=== PATIENT | female | born 1940 | race Caucasian/White ===

== ENCOUNTER 2018-01-27 18:53 | Inpatient (IN) | payer OTHER ==
[~2018-01-27] VITALS: Ht 152.4 cm; Wt 64.0 kg
[~2018-01-27 18:53] MED LIST: GEM600T GT; GLIP-116 PO; INSUINJ37 SC; INSUINJ47 IJ; LISI-646 PO; MET25T PO; OMEP20CA74 PO
[2018-01-27 20:05] LABS: Basophils # (auto) 0 uL; Basophils % (auto) 0.4 % (0.0-2.0); Eosinophils # (auto) 0.1 uL; Eosinophils % (auto) 1.1 % (0.0-7.0); Hematocrit 35.4 % (36.0-46.0); Hemoglobin 12.3 g/dL (12.2-16.2); Lymphocytes # (auto) 2.4 uL; Lymphocytes % (auto) 29.3 % (10.0-50.0); Mean Corpuscular Hgb Conc. 34.6 g/dL (32.0-36.0); Mean Corpuscular Volume 86.5 fL (80.0-100.0); Monocytes # (auto) 0.6 uL; Monocytes % (auto) 7.3 % (0.0-12.0); Neutrophils % (auto) 61.9 % (37.0-80.0); Platelet Count (auto) 226 10^3/uL (140-450); Red Blood Cells 4.09 10^6/uL (4.0-5.20); White Blood Cell 8.1 10^3/uL (4.4-10.8)
[2018-01-27 20:14] LABS: Albumin 3.3 g/dL (3.4-5.0); Anion Gap 5 (5-15); Blood Urea Nitrogen 37 mg/dL (7-18); Calcium 9.8 mg/dL (8.5-10.1); Carbon Dioxide 24 mmol/L (21-32); Chloride 111 mmol/L (98-107); Glucose 135 mg/dL (74-106); Potassium 4.5 mmol/L (3.5-5.1); Sodium 140 mmol/L (136-145)
[2018-01-27 20:21] LABS: Alanine Aminotransferase 15 U/L (13-56); Alkaline Phosphatase 95 U/L (45-117); Aspartate Aminotransferase 8 U/L (15-37); BUN/Creatinine Ratio 20.2; Bilirubin, Total 0.3 mg/dL (0.2-1.0); GFR African American 34 mL/min; GFR Non-African American 28 mL/min; Total Protein 6.8 g/dL (6.4-8.2)
[2018-01-27] MEDS ORDERED: SODIUM CHLORIDE 0.9% 1,000 ML IV ONE (22:00)
[2018-01-27 22:48] LABS: Urine Bacteria MANY /hpf (None Seen); Urine Blood Negative /uL (Negative); Urine Hyaline Cast FEW /lpf (0 - 2); Urine Specific Gravity 1.008 (1.001-1.035); Urine WBC 52 /hpf (0 - 5)
[2018-01-27] MEDS ORDERED: cefTRIAXone 1GM/50ML D5W 50 ML IV ONE (23:15)
[2018-01-27] MEDS ORDERED: KETOROLAC TROMETH 30 MG/ML 1ML VIAL IV ONE (23:45)
[2018-01-27] MEDS ORDERED: cloNIDine HCL 0.1 MG TAB PO ONE (23:45)
[2018-01-27 23:46] LABS: Amylase 329 U/L (25-115); Lipase 4813 U/L (73-393)
[2018-01-28] VITALS (8 sets, daily range): BP systolic 101–181; BP diastolic 47–70
[2018-01-28] MEDS ORDERED: MORPHINE SULFATE 4 MG/ML SYR/VIAL IV PRN (00:15)
[2018-01-28] MEDS ORDERED: DEXTROSE (50%) 50ML SYRG IV PRN (00:15)
[2018-01-28] MEDS ORDERED: ONDANSETRON HCL 4 MG/2 ML VIAL IV PRN (00:15)
[2018-01-28] MEDS ORDERED: ACETAMINOPHEN 500 MG TAB PO PRN (00:15)
[2018-01-28] MEDS ORDERED: LACTULOSE 20Gm/30ML SOLN PO ONE (01:00)
[2018-01-28] MEDS ORDERED: SODIUM CHLORIDE 0.9% 1,000 ML IV SCH (02:15)
[2018-01-28] MEDS ORDERED: SIMV-13 PO (04:33)
[2018-01-28] MEDS ORDERED: LISI-646 PO (04:33)
[2018-01-28] MEDS ORDERED: SENN15TA5 PO (04:33)
[2018-01-28] MEDS ORDERED: INSU1INJ13 SC (04:33)
[2018-01-28] MEDS ORDERED: RANI150C11 PO (04:33)
[2018-01-28] MEDS ORDERED: PREG50CA PO (04:33)
[2018-01-28] MEDS ORDERED: ACET-1158 PO (04:33)
[2018-01-28] MEDS ORDERED: SENNTAB PO (04:33)
[2018-01-28 05:45] LABS: Basophils # (auto) 0 uL; Basophils % (auto) 0.5 % (0.0-2.0); Eosinophils # (auto) 0.1 uL; Eosinophils % (auto) 1.3 % (0.0-7.0); Lymphocytes # (auto) 2.2 uL; Mean Corpuscular Hemoglobin 29.7 pg (28.0-32.0); Mean Corpuscular Hgb Conc. 34.2 g/dL (32.0-36.0); Mean Corpuscular Volume 86.7 fL (80.0-100.0); Monocytes # (auto) 0.4 uL; Monocytes % (auto) 6.9 % (0.0-12.0); Neutrophils # (auto) 3.6 uL; Neutrophils % (auto) 56.3 % (37.0-80.0); Nucleated Red Blood Cells % 0.1 %; Platelet Count (auto) 181 10^3/uL (140-450); Red Blood Cells 3.69 10^6/uL (4.0-5.20); White Blood Cell 6.3 10^3/uL (4.4-10.8)
[2018-01-28 06:03] LABS: BUN/Creatinine Ratio 18.7; Calcium 9.6 mg/dL (8.5-10.1); Potassium 4.4 mmol/L (3.5-5.1)
[2018-01-28] MEDS: InsuLIN REG 1unit/0.01ml Soln (100units/ml) SC SCH ×4 (06:26→21:26)
[2018-01-28] MEDS: ACCU-CHEK COMFORT CURVE STRIP VI SCH ×4 (06:27→21:36)
[2018-01-28] MEDS: METOPROLOL TARTRATE 50 MG TAB PO SCH ×3 (10:00→21:36)
[2018-01-28] MEDS ORDERED: LISINOPRIL 20 MG TAB PO SCH (10:00)
[2018-01-28] MEDS ORDERED: PANTOPRAZOLE 40 MG/10 ML VIAL IV ONE (10:30)
[2018-01-28] MEDS: SODIUM CHLORIDE 0.9% 1,000 ML IV SCH ×2 (10:45→21:35)
[2018-01-28] MEDS ORDERED: PREGABALIN 25 MG CAP PO ONE (18:00)
[2018-01-28] MEDS ORDERED: LISINOPRIL 10 MG TAB PO ONE (18:00)
[2018-01-28] MEDS: cefTRIAXone 1GM/50ML D5W 50 ML IV SCH (21:35)
[2018-01-28] MEDS: DOCUSATE SOD 100 MG CAP PO SCH (21:35)
[2018-01-28] MEDS ORDERED: hydrALAZINE HCL 20 MG/ML VL IV ONE (23:00)
[2018-01-29] VITALS (7 sets, daily range): BP systolic 152–207; BP diastolic 66–80
[2018-01-29] MEDS ORDERED: ENALAPRILAT 1.25 MG/ML-1ML VIAL IV ONE (03:00)
[2018-01-29 06:21] LABS: Potassium 4.3 mmol/L (3.5-5.1)
[2018-01-29] MEDS: InsuLIN REG 1unit/0.01ml Soln (100units/ml) SC SCH ×4 (06:21→21:44)
[2018-01-29 06:27] LABS: BUN/Creatinine Ratio 21.9; Calcium 9.8 mg/dL (8.5-10.1)
[2018-01-29] MEDS: SODIUM CHLORIDE 0.9% 1,000 ML IV SCH ×2 (06:42→16:55)
[2018-01-29] MEDS: ACCU-CHEK COMFORT CURVE STRIP VI SCH ×4 (06:42→21:43)
[2018-01-29] MEDS ORDERED: LISINOPRIL 10 MG TAB PO SCH (10:00)
[2018-01-29] MEDS ORDERED: amLODIPine BESYLATE 5 MG TAB PO ONE (11:00)
[2018-01-29] MEDS: DOCUSATE SOD 100 MG CAP PO SCH ×2 (11:07→21:26)
[2018-01-29] MEDS: PANTOPRAZOLE 40 MG/10 ML VIAL IV SCH (11:10)
[2018-01-29] MEDS: HYDROcodone-ACET 5/325MG TAB PO PRN ×2 (12:16→21:25)
[2018-01-29] MEDS: cefTRIAXone 1GM/50ML D5W 50 ML IV SCH (21:25)
[2018-01-29] MEDS: METOPROLOL TARTRATE 50 MG TAB PO SCH (21:26)
[2018-01-30] MEDS: SODIUM CHLORIDE 0.9% 1,000 ML IV SCH ×2 (02:30→10:30)
[2018-01-30 04:04] VITALS: BP 146/77
[2018-01-30] MEDS: InsuLIN REG 1unit/0.01ml Soln (100units/ml) SC SCH ×4 (06:01→22:00)
[2018-01-30] MEDS: ACCU-CHEK COMFORT CURVE STRIP VI SCH ×4 (06:01→22:07)
[2018-01-30 06:42] LABS: Potassium 4.3 mmol/L (3.5-5.1)
[2018-01-30 06:46] LABS: BUN/Creatinine Ratio 19.3; Calcium 9.6 mg/dL (8.5-10.1)
[2018-01-30 08:00] VITALS: BP 151/63
[2018-01-30 09:09] VITALS: BP 151/63
[2018-01-30] MEDS ORDERED: LISINOPRIL 10 MG TAB PO SCH (10:00)
[2018-01-30] MEDS ORDERED: amLODIPine BESYLATE 5 MG TAB PO SCH (10:00)
[2018-01-30] MEDS: DOCUSATE SOD 100 MG CAP PO SCH ×2 (10:36→22:06)
[2018-01-30] MEDS: METOPROLOL TARTRATE 50 MG TAB PO SCH ×2 (10:38→22:10)
[2018-01-30] MEDS: PANTOPRAZOLE 40 MG/10 ML VIAL IV SCH (10:44)
[2018-01-30] MEDS: HYDROcodone-ACET 5/325MG TAB PO PRN (16:08)
[2018-01-30 17:25] VITALS: BP 139/77
[2018-01-30] MEDS ORDERED: ATORVASTATIN 20 MG TAB PO SCH (22:00)
[2018-01-30] MEDS: cefTRIAXone 1GM/50ML D5W 50 ML IV SCH (22:00)
[2018-01-30 22:02] VITALS: BP 161/81
[2018-01-31] MEDS: SODIUM CHLORIDE 0.9% 1,000 ML IV SCH (03:00)
[2018-01-31 04:36] VITALS: BP 157/93
[2018-01-31 06:03] LABS: BUN/Creatinine Ratio 19.2; Calcium 10.6 mg/dL (8.5-10.1); Potassium 4.4 mmol/L (3.5-5.1)
[2018-01-31] MEDS ORDERED: ASPirin 81 mg TAB PO SCH (10:00)
== END 2018-01-31 06:42 | disposition left against medical advice (07) | DRG 438 ==
LOC: ER 18:53 → TELE-CENTR 01-28 00:18 → CENTRAL 01-29 22:20 → TELE-CENTR 01-30 13:46 → CENTRAL 01-30 23:52
PROVIDERS: ADMIT Nurse Practitioner Family; ATTEND Nurse Practitioner Family
DX: K85.90 Acute pancreatitis without necrosis or infection, unspecified (principal); I50.41 Acute combined systolic (congestive) and diastolic (congestive) heart failure; N39.0 Urinary tract infection, site not specified; I13.0 Hypertensive heart and chronic kidney disease with heart failure and stage 1 through stage 4 chronic kidney disease, or unspecified chronic kidney disease; K59.09 Other constipation; K57.90 Diverticulosis of intestine, part unspecified, without perforation or abscess without bleeding; N18.3 Chronic kidney disease, stage 3 (moderate); Z53.21 Procedure and treatment not carried out due to patient leaving prior to being seen by health care provider; I65.21 Occlusion and stenosis of right carotid artery; E11.22 Type 2 diabetes mellitus with diabetic chronic kidney disease; D35.00 Benign neoplasm of unspecified adrenal gland; Z86.73 Personal history of transient ischemic attack (TIA), and cerebral infarction without residual deficits; Z79.4 Long term (current) use of insulin; Z90.49 Acquired absence of other specified parts of digestive tract; Z90.710 Acquired absence of both cervix and uterus
CPT/HCPCS: 36415; 70450; 71045; 74176; 76705; 80048; 80053; 81001; 82150; 82962; 83036; 83690; 83735; 83880; 84484; 85025; 87086; 93005; 93886; 94761; 96361; 96365; 96375; 97116; 97163; 97530; C9113; G0378; J0696; J1815; J1885

== ENCOUNTER → 2018-03-24 | Outpatient (CLI) | payer OTHER ==
[~2018-03-24] VITALS: Ht 152.4 cm; Wt 62.6 kg
[~2018-03-24] MED LIST changes: +ACET-1158 PO; +ADENOSINE 53 MG in GIVE UN-DILUTED 0 ML IV ONE; +ADENOSINE 90 MG/30 ML INJ IV ONE; -GEM600T GT; +INSU1INJ13 SC; -INSUINJ37 SC; -INSUINJ47 IJ; -OMEP20CA74 PO; +PREG50CA PO; +RANI150C11 PO; +SENN15TA5 PO; +SENNTAB PO; +SIMV-13 PO
== END | disposition home or self-care (01) ==
LOC: Rad HDHVI 14:15
PROVIDERS: ATTEND Internal Medicine Cardiovascular Disease
DX: I51.7 Cardiomegaly (principal); I35.1 Nonrheumatic aortic (valve) insufficiency; D17.4 Benign lipomatous neoplasm of intrathoracic organs; I73.9 Peripheral vascular disease, unspecified; E11.9 Type 2 diabetes mellitus without complications; J44.9 Chronic obstructive pulmonary disease, unspecified; G45.9 Transient cerebral ischemic attack, unspecified
CPT/HCPCS: 78452; 93005; 93306; 96374; 96375; A9500; J0153

== ENCOUNTER → 2018-04-27 | Outpatient (CLI) | payer OTHER ==
[~2018-04-27] MED LIST changes: -ADENOSINE 53 MG in GIVE UN-DILUTED 0 ML IV ONE; -ADENOSINE 90 MG/30 ML INJ IV ONE; +AML5T PO; +ASPI81TA27 PO; +CLOP75TA28 PO
[2018-04-27 10:20] VITALS: BP 179/70
[2018-04-27 11:00] VITALS: BP 167/66
--- NOTE | 2018-04-27 11:00 | NUR ---
PRE-OP FOR RIGHT LOWER EXTREMITY ANGIO FOR 04/29/18. FAMILY IN ATTENDANCE . MULTIPLE QUESTIONS REGARDING PROCEDURE AND EXPECTATIONS. QUESTIONS ANSWERED TO SATISFACTION WITH PATIENT. PT HAS A LOST FINGERNAIL ON RIGHT MIDDLE FINGER AND IS CONCERNED IT IS INFECTED. NO SIGNS OF INFECTION OBSERVED. SKIN IS SLIGHTLY YELLOW TINT, BUT PT REPORTS THAT SHE APPLIED A DRESSING TO IT LAST NIGHT WITH NEOSPORIN. SKIN APPEARS TO BE SLIGHTLY MACERATED AND CREATING YELLOW TINT. NO ERYTHEMA. NAIL BED PINKISH IN COLOR. Pre-Op Discharge Summary: See e-MAR for any medications given for this visit. Pre-op orders received and carried out per MD of EKG, LABS and chest xrays. Patient given a copy of EKG with instructions to go to [facility] out patient for further follow up care.
[2018-04-27 12:53] LABS: Basophils # (auto) 0 uL; Basophils % (auto) 0.6 % (0.0-2.0); Eosinophils # (auto) 0.1 uL; Eosinophils % (auto) 1.3 % (0.0-7.0); Hematocrit 37.8 % (36.0-46.0); Hemoglobin 12.5 g/dL (12.2-16.2); Lymphocytes # (auto) 1.4 uL; Lymphocytes % (auto) 21.7 % (10.0-50.0); Mean Corpuscular Hemoglobin 28.9 pg (28.0-32.0); Mean Corpuscular Volume 87.6 fL (80.0-100.0); Monocytes # (auto) 0.4 uL; Monocytes % (auto) 6.4 % (0.0-12.0); Neutrophils # (auto) 4.5 uL; Nucleated Red Blood Cells % 0.1 %; Platelet Count (auto) 232 10^3/uL (140-450); Red Blood Cells 4.32 10^6/uL (4.0-5.20); Red Cell Distribution Width 13.5 % (11.8-14.3); White Blood Cell 6.4 10^3/uL (4.4-10.8)
[2018-04-27 13:04] LABS: INR 0.9 (0.9-1.15); Partial Thromboplastin Time 29.8 sec (23.78-33.04); Prothrombin Time 9.7 sec (9.27-12.13)
[2018-04-27 13:12] LABS: Calcium 9.5 mg/dL (8.5-10.1); Potassium 4.8 mmol/L (3.5-5.1)
[2018-04-27 13:14] LABS: BUN/Creatinine Ratio 21.1
== END | disposition home or self-care (01) ==
LOC: Rad HDHVI 09:48
PROVIDERS: ATTEND Internal Medicine Cardiovascular Disease
DX: Z01.812 Encounter for preprocedural laboratory examination (principal); I11.9 Hypertensive heart disease without heart failure; I70.0 Atherosclerosis of aorta; D64.9 Anemia, unspecified; R79.1 Abnormal coagulation profile; R94.31 Abnormal electrocardiogram [ECG] [EKG]
CPT/HCPCS: 36415; 80048; 85025; 85610; 85730; 93005; G0463; 71046

== ENCOUNTER 2018-04-29 10:15 | Inpatient (IN) | payer OTHER ==
[~2018-04-29] VITALS: Ht 149.9 cm; Wt 65.0 kg
[~2018-04-29 10:15] MED LIST changes: -MET25T PO; -PREG50CA PO; -RANI150C11 PO; -SENN15TA5 PO; -SENNTAB PO
[2018-04-29] MEDS ORDERED: fentaNYL CITRATE 100 MCG/2 ML VL ONE (12:21)
[2018-04-29] MEDS ORDERED: IODIXANOL 320MG/ML 100ML BTL IV ONE (12:21)
[2018-04-29] MEDS ORDERED: ANGIOMAX 250 MG VIAL IV ONE (12:21)
[2018-04-29] MEDS ORDERED: SODIUM CHL 0.9% 50 ML ONE (12:21)
[2018-04-29] MEDS ORDERED: MIDAZOLAM HCL 1MG/1ML-2 ML VIAL ONE (12:21)
[2018-04-29] MEDS ORDERED: LIDOCAINE 2%HCL (LOCAL ANESTH.) INJ 20ML MDV ONE (12:22)
[2018-04-29] MEDS ORDERED: NITROGLYCERIN 5MG/ML 10ML VIAL IV ONE (12:49)
[2018-04-29] MEDS ORDERED: VERAPAMIL 2.5MG/ML INJ 2ML VIAL IV ONE (12:49)
[2018-04-29] MEDS ORDERED: ACETAMINOPHEN 500 MG TAB PO PRN (14:00)
[2018-04-29] MEDS ORDERED: ONDANSETRON HCL 4 MG/2 ML VIAL IV PRN (14:00)
[2018-04-29] MEDS ORDERED: DEXTROSE (50%) 50ML SYRG IV PRN (14:00)
[2018-04-29] MEDS ORDERED: MORPHINE SULFATE 4 MG/ML SYR/VIAL IV PRN (14:00)
[2018-04-29] MEDS ORDERED: NITROGLYCERIN 0.4 MG SL TAB SL PRN (14:00)
[2018-04-29] MEDS ORDERED: LISINOPRIL 20 MG TAB PO ONE (14:15)
[2018-04-29] MEDS ORDERED: CLOPIDOGREL BISULFATE 75 MG TAB PO ONE (14:15)
[2018-04-29] MEDS ORDERED: glipiZIDE 5 MG TAB PO ONE (14:15)
[2018-04-29] MEDS ORDERED: ASPirin-EC 81 mg tab PO ONE (14:15)
[2018-04-29] MEDS: SODIUM CHLOR 0.9% PF (SALINE LOCK) 10ML VIAL/SYR IV SCH ×2 (14:22→21:34)
[2018-04-29] MEDS: HYDROcodone-ACET 5/325MG TAB PO PRN ×2 (16:21→21:47)
[2018-04-29] MEDS: InsuLIN REG 1unit/0.01ml Soln (100units/ml) SC SCH ×2 (16:58→21:51)
[2018-04-29] MEDS: ACCU-CHEK COMFORT CURVE STRIP VI SCH ×2 (16:58→21:51)
--- NOTE | 2018-04-29 17:42 | NUR ---
MED SURG ADMIT FROM CAGER OPERATOR Report received from Laurence. ESTEFANY THOMAS brought to bed 223B following peripherial angio with stent. Patient transfered to unit bed. Catheterization site assessed for any bleeding, redness or swelling. Pedal pulses on affected leg assessed for positive tissue perfusion. Patient instructed on need to notify staff immediately if any pain, burning or wetness to site, and any lower back pain. All questions and concerns addressed, patient verbalized understanding of all education and instruction.
[2018-04-29 17:54] VITALS: BP 163/75
--- NOTE | 2018-04-29 18:40 | NUR ---
END OF SHIFT PATIENT RESTING IN BED. NO S/S OF DISTRESS. INSTRUCTED PATIENT TO CALL PRN. BED IN LOWEST LOCKED POSITION, CALL LIGHT WITHIN REACH. ENDORSED CARE TO BARI REIS.
--- NOTE | 2018-04-29 19:15 | NUR ---
ASSUMED PATIENT CARE - NOC SHIFT PATIENT IS ALERT AND ORIENTED X4, ANSWERS IN COMPLETE SENTENCES AND MAKES APPROPRIATE EYE CONTACT. PATIENT IS STATUS POST ANGIOPLASTY. DRESSING IS DRY AND INTACT. PATIENT STATES THAT SHE HAS BEEN LAYING IN HER BLOOD FOR FIVE HOURS AND IS UPSET. I CLEANED A SCANT AMOUNT OF DRY BLOOD TO HER [place] AREA AND LEFT INNER THIGH. I DID A COMPLETE LINEN CHANGE AND GOWN CHANGE. I ASSISTED PATIENT TO BATHROOM; PATIENT AMBULATED INDEPENDENTLY AND TOLERATED WELL. PATIENT DID NOT HAVE A BOWEL MOVEMENT, URINE IS CLEAR YELLOW NORMAL ODOR. I ASSISTED PATIENT BACK INTO BED. PATIENT IS COMFORTABLE IN BED, BED IS LOCKED IN LOWEST POSITION, BED RAIL UP X2 AND HEAD OF BED IS UP >30 DEGREES. DISCUSSED POC WITH PATIENT AND INSTRUCTED PATIENT TO CALL PRN; PATIENT VERBALIZED UNDERSTANDING. WILL CONTINUE TO MONITOR Q1H AND PRN.
[2018-04-29 22:00] VITALS: BP 138/71
[2018-04-29] MEDS ORDERED: ATORVASTATIN 20 MG TAB PO SCH (22:00)
[2018-04-30 05:00] VITALS: BP 110/62
[2018-04-30] MEDS: SODIUM CHLOR 0.9% PF (SALINE LOCK) 10ML VIAL/SYR IV SCH (05:28)
--- NOTE | 2018-04-30 06:38 | NUR ---
PATIENT COMPLAINED THAT CARE WAS NOT GIVEN TO HER DURING THE NIGHT. I REMINDED HER THAT I BROUGHT HER NORCO WHEN SHE COMPLAINED OF PAIN AND THAT LATER I PROVIDED HER WITH ZOFRAN WHEN SHE COMPLAINED OF NAUSEA. I PROVIDED HER WITH AN EXTRA BLANKET WHEN SHE CALLED AND COMPLAINED OF BEING COLD AND AN EXTRA PILLOW WHEN SHE COMPLAINED OF NOT BEING ABLE TO BE COMFORTABLE. I ALSO REMINDED HER THAT I CHANGED HER LINEN AND CLEANED HER AT THE START OF SHIFT WHEN SHE REQUESTED. PATIENT STATED THAT SHE CALLED HER SON TO COME PICK HER UP AND THAT SHE WAS VERY UNHAPPY WITH THE CARE PROVIDED. I ASKED HER IF SHE WOULD LIKE FOR ME TO CHECK HER BS BEFORE SHE LEAVES AND SHE REFUSED. WILL ENDORSE FOLLOW UP TO DAY SHIFT NURSE.
[2018-04-30] MEDS: InsuLIN REG 1unit/0.01ml Soln (100units/ml) SC SCH ×2 (06:52→11:30)
[2018-04-30] MEDS: ACCU-CHEK COMFORT CURVE STRIP VI SCH ×2 (06:52→11:30)
--- NOTE | 2018-04-30 07:30 | NUR ---
Opening Shift Note Assuming care of patient at this time. Patient is complaining that she has not had any care throughout the night. Patient is resting in bed with bed locked and lowered, side rails up x2. Instructed patient on the plan of care for today and to call for assistance as needed. Call light within reach.
--- NOTE | 2018-04-30 08:30 | NUR ---
Re: Patient at station Patient has ambulated to nurses' station at this time. Patient states that she wants to go home right now and wants to talk to her son. Called her son, she verbalized that she has not been receiving care and wants to go home.
[2018-04-30 09:00] VITALS: BP 105/55
[2018-04-30 09:30] VITALS: BP 188/78
--- NOTE | 2018-04-30 09:40 | NUR ---
Son at bedside Son is at bedside at this time. Patient states that she has not had vitals signs checked or blood sugar checked. Informed son that vitals were taking this morning, and her blood pressure was re-checked approximately 5 minutes before. Informed son that patient has refused her accucheck this morning. Patient now agrees to have blood sugar checked. Will assess.
[2018-04-30] MEDS ORDERED: LISINOPRIL 20 MG TAB PO SCH (10:00)
[2018-04-30] MEDS ORDERED: amLODIPine BESYLATE 5 MG TAB PO SCH (10:00)
[2018-04-30] MEDS ORDERED: glipiZIDE 5 MG TAB PO SCH (10:00)
[2018-04-30] MEDS ORDERED: CLOPIDOGREL BISULFATE 75 MG TAB PO SCH (10:00)
[2018-04-30] MEDS ORDERED: ASPirin-EC 81 mg tab PO SCH (10:00)
--- NOTE | 2018-04-30 10:00 | NUR ---
Re: Accucheck Blood sugar checked at this time. Will administer morning glipizide and reassess blood sugar if patient allows.
--- NOTE | 2018-04-30 11:10 | NUR ---
Re: Discharge Medications Spoke with Dr. Gtz regarding patient's discharge. Received orders to call in Plavix, 75 mg PO daily for home. Per patient's son, patient is already taking 75 mg PO daily at home. Instructed patient and son to continue to take Plavix, 75 mg, at home.
--- NOTE | 2018-04-30 12:38 | NUR ---
Discharge Discharge instructions given as ordered. Encourage to follow up with Dr. Gtz as instructed, appointment made. All questions and concerns addressed. Patient verbalized understanding. IV removed with catheter intact, and pressure dressing applied. Patient taken to vehicle via wheelchair with all personal belongings, accompanied by staff and family member. No distress noted at time of departure.
== END 2018-04-30 12:30 | disposition home or self-care (01) | DRG 272 ==
LOC: CATH 10:15 → CENTRAL 17:47
PROVIDERS: ADMIT Internal Medicine Cardiovascular Disease; ATTEND Internal Medicine Cardiovascular Disease
PROC: B41G1ZZ Fluoroscopy of Left Lower Extremity Arteries using Low Osmolar Contrast (ICD-10-PCS; principal; 2018-04-29)
PROC: 04CK3ZZ Extirpation of Matter from Right Femoral Artery, Percutaneous Approach (ICD-10-PCS; 2018-04-29)
PROC: 047M3Z1 Dilation of Right Popliteal Artery using Drug-Coated Balloon, Percutaneous Approach (ICD-10-PCS; 2018-04-29)
PROC: 04CM3ZZ Extirpation of Matter from Right Popliteal Artery, Percutaneous Approach (ICD-10-PCS; 2018-04-29)
PROC: B41F1ZZ Fluoroscopy of Right Lower Extremity Arteries using Low Osmolar Contrast (ICD-10-PCS; 2018-04-29)
PROC: 047K3Z1 Dilation of Right Femoral Artery using Drug-Coated Balloon, Percutaneous Approach (ICD-10-PCS; 2018-04-29)
DX: E11.51 Type 2 diabetes mellitus with diabetic peripheral angiopathy without gangrene (principal); I70.211 Atherosclerosis of native arteries of extremities with intermittent claudication, right leg; I10 Essential (primary) hypertension; J44.9 Chronic obstructive pulmonary disease, unspecified; E78.5 Hyperlipidemia, unspecified; I67.9 Cerebrovascular disease, unspecified; I25.10 Atherosclerotic heart disease of native coronary artery without angina pectoris; Z95.5 Presence of coronary angioplasty implant and graft; Z82.49 Family history of ischemic heart disease and other diseases of the circulatory system; Z86.73 Personal history of transient ischemic attack (TIA), and cerebral infarction without residual deficits; Z79.84 Long term (current) use of oral hypoglycemic drugs; Z87.891 Personal history of nicotine dependence
CPT/HCPCS: 37225; 75716; 82962; 99152; A6257; C1769; G0378; J1815; J2250; J2405; J3490; Q9967

== ENCOUNTER → 2018-07-05 | Outpatient (CLI) | payer OTHER ==
[~2018-07-05] MED LIST changes: +RANI150C11 PO
[2018-07-05 09:00] VITALS: BP 141/57
--- NOTE | 2018-07-05 09:00 | NUR ---
[facility] PT ARRIVED [facility] FOR PREOP FOR RIGHT LE ANGIO. VITAL SIGNS OBTAINED 0 DISTRESS NOTED
--- NOTE | 2018-07-05 09:05 | NUR ---
Pre-Op Discharge Summary: See e-MAR for any medications given for this visit. Pre-op orders received and carried out per MD of EKG, LABS and chest xrays. Patient given a copy of EKG with instructions to go to [facility] out patient for further follow up care.
[2018-07-05 09:35] VITALS: BP 153/60
[2018-07-05 09:49] VITALS: BP 141/57
[2018-07-05 12:40] LABS: INR 0.9 (0.9-1.15); Partial Thromboplastin Time 30.3 sec (23.78-33.04); Prothrombin Time 9.7 sec (9.27-12.13)
[2018-07-05 12:46] LABS: Basophils # (auto) 0 uL; Basophils % (auto) 0.5 % (0.0-2.0); Eosinophils # (auto) 0.1 uL; Eosinophils % (auto) 1.3 % (0.0-7.0); Hematocrit 35.1 % (36.0-46.0); Hemoglobin 11.4 g/dL (12.2-16.2); Lymphocytes # (auto) 1.1 uL; Mean Corpuscular Hemoglobin 28.4 pg (28.0-32.0); Mean Corpuscular Hgb Conc. 32.5 g/dL (32.0-36.0); Mean Corpuscular Volume 87.4 fL (80.0-100.0); Monocytes # (auto) 0.4 uL; Monocytes % (auto) 5.2 % (0.0-12.0); Neutrophils # (auto) 5.8 uL; Nucleated Red Blood Cells % 0.1 %; Platelet Count (auto) 260 10^3/uL (140-450); Red Blood Cells 4.02 10^6/uL (4.0-5.20); Red Cell Distribution Width 14.7 % (11.8-14.3); White Blood Cell 7.5 10^3/uL (4.4-10.8)
[2018-07-05 13:17] LABS: Potassium 5.2 mmol/L (3.5-5.1)
[2018-07-05 13:35] LABS: BUN/Creatinine Ratio 23.8; Calcium 10.5 mg/dL (8.5-10.1)
== END | disposition home or self-care (01) ==
LOC: Rad HDHVI 08:39
PROVIDERS: ATTEND Internal Medicine Cardiovascular Disease
DX: Z01.818 Encounter for other preprocedural examination (principal); I70.0 Atherosclerosis of aorta; D64.9 Anemia, unspecified; R79.1 Abnormal coagulation profile; I10 Essential (primary) hypertension
CPT/HCPCS: 36415; 71046; 80048; 85025; 85610; 85730; 93005; G0463

== ENCOUNTER 2018-07-08 07:02 | Inpatient (IN) | payer OTHER | END 2018-07-09 09:15 | disposition left against medical advice (07) | LOC: CATH 07:02 → CENTRAL 12:31 | PROC: 047K3Z1 Dilation of Right Femoral Artery using Drug-Coated Balloon, Percutaneous Approach (ICD-10-PCS; principal; ~2018-07-08) | PROC: B41G1ZZ Fluoroscopy of Left Lower Extremity Arteries using Low Osmolar Contrast (ICD-10-PCS; ~2018-07-08) | PROC: B41F1ZZ Fluoroscopy of Right Lower Extremity Arteries using Low Osmolar Contrast (ICD-10-PCS; ~2018-07-08) | DX: I73.9 Peripheral vascular disease, unspecified (principal); I50.32 Chronic diastolic (congestive) heart failure ==

== ENCOUNTER → 2018-11-16 | Outpatient (CLI) | payer OTHER ==
[~2018-11-16] MED LIST changes: +ASPI-404 PO; -ASPI81TA27 PO; -GLIP-116 PO; +GLIP10TA9 PO
== END | disposition home or self-care (01) ==
LOC: Rad HDHVI 12:31
PROVIDERS: ATTEND Internal Medicine Cardiovascular Disease
DX: I65.23 Occlusion and stenosis of bilateral carotid arteries (principal); R00.2 Palpitations
CPT/HCPCS: 93880

== ENCOUNTER 2019-07-29 10:17 | Inpatient (IN) | payer OTHER ==
[2019-07-29] VITALS (21 sets, daily range): BP systolic 84–155; BP diastolic 25–62
[~2019-07-29] VITALS: Ht 152.4 cm; Wt 66.2 kg
[2019-07-29] MEDS ORDERED: SODIUM CHLORIDE 0.9% 1,000 ML IV ONE (10:20)
[2019-07-29 11:03] LABS: Basophils # (auto) 0 10 ^3/uL (0-0.2); Basophils % (auto) 0.4 % (0.0-2.0); Lymphocytes # (auto) 1.7 10 ^3/uL (0.4-5.4)
[2019-07-29 11:04] LABS: Eosinophils # (auto) 0 10 ^3/uL (0-0.8); Eosinophils % (auto) 0.4 % (0.0-7.0); Hematocrit 18.2 % (36.0-46.0); Lymphocytes % (auto) 15.3 % (10.0-50.0); Mean Corpuscular Hemoglobin 29.3 pg (28.0-32.0); Mean Corpuscular Hgb Conc. 32.4 g/dL (32.0-36.0); Mean Corpuscular Volume 90.5 fL (80.0-100.0); Monocytes # (auto) 0.6 10 ^3/uL (0-1.3); Monocytes % (auto) 5.1 % (0.0-12.0); Neutrophils # (auto) 8.5 10 ^3/uL (1.6-8.6); Neutrophils % (auto) 78.8 % (37.0-80.0); Platelet Count (auto) 392 10^3/uL (140-450); Red Blood Cells 2.01 10^6/uL (4.0-5.20); White Blood Cell 10.8 10^3/uL (4.4-10.8)
[2019-07-29 11:09] LABS: Hemoglobin 5.9 g/dL (12.2-16.2)
[2019-07-29 11:17] LABS: Partial Thromboplastin Time 23.8 sec (23.64-32.05)
[2019-07-29 11:23] LABS: Albumin 3.3 g/dL (3.4-5.0); Calcium 9.4 mg/dL (8.5-10.1); Potassium 5.5 mmol/L (3.5-5.1)
[2019-07-29 11:28] LABS: BUN/Creatinine Ratio 30.7; Bilirubin, Total 0.3 mg/dL (0.2-1.0); Total Protein 6.7 g/dL (6.4-8.2)
[2019-07-29] MEDS ORDERED: MORPHINE SULF INJ 2 MG/ML SYRINGE 1ML IV ONE (12:00)
[2019-07-29] MEDS ORDERED: ASPirin 81 mg TAB PO ONE (12:00)
[2019-07-29] MEDS ORDERED: ENOXAPARIN SOD 60 MG/0.6 ML SYRINGE SC ONE (12:00)
[2019-07-29] MEDS ORDERED: ONDANSETRON HCL 4 MG/2 ML VIAL IV ONE (12:00)
[2019-07-29] MEDS ORDERED: NITROGLYCERIN 0.4 MG SL TAB SL PRN (13:30)
[2019-07-29] MEDS ORDERED: MORPHINE SULF INJ 2 MG/ML SYRINGE 1ML IV PRN ×3 (13:30→14:00)
[2019-07-29] MEDS: SODIUM CHLORIDE 0.9% 1,000 ML IV SCH ×2 (13:32→21:49)
[2019-07-29] MEDS ORDERED: LACTULOSE 20Gm/30ML SOLN PO PRN ×3 (13:45→14:30)
[2019-07-29] MEDS ORDERED: SODIUM ZIRCONIUM CYCL 10 GM PAK PO ONE (13:45)
[2019-07-29] MEDS ORDERED: FUROSEMIDE 40 MG/4 ML VIAL IV ONE (13:45)
[2019-07-29] MEDS ORDERED: PANTOPRAZOLE 40 MG/10 ML VIAL INJ IV ONE (13:45)
[2019-07-29] MEDS ORDERED: SODIUM BICARBONATE 8.4% INJ 50ML SYRINGE IV ONE (13:45)
[2019-07-29] MEDS ORDERED: InsuLIN REG 1unit/0.01ml Soln (100units/ml) IV ONE (13:45)
[2019-07-29] MEDS ORDERED: ONDANSETRON HCL 4 MG/2 ML VIAL IV PRN (13:45)
[2019-07-29] MEDS ORDERED: DEXTROSE (50%) 50ML SYRG IV ONE (13:45)
[2019-07-29] MEDS ORDERED: OMNIPAQUE ORAL SOLN 500ml 12mg/ml PO ONE (14:31)
[2019-07-29] MEDS ORDERED: DEXTROSE (50%) 50ML SYRG IV PRN (15:15)
[2019-07-29] MEDS: InsuLIN REG 1unit/0.01ml Soln (100units/ml) SC SCH ×2 (16:00→20:00)
[2019-07-29] MEDS: ACCU-CHEK COMFORT CURVE STRIP VI SCH ×2 (16:20→20:00)
[2019-07-29 19:04] LABS: Hematocrit 18.5 % (36.0-46.0)
[2019-07-29 19:24] LABS: Hemoglobin 6.2 g/dL (12.2-16.2)
[2019-07-29 21:56] LABS: Urine WBC None Seen /hpf (0 - 5)
[2019-07-29] MEDS: CARVEDILOL 3.125 MG TAB PO SCH (22:00)
[2019-07-29 22:20] LABS: Urine Bacteria NONE SEEN /hpf (None Seen); Urine Blood Negative /uL (Negative); Urine Specific Gravity 1.007 (1.001-1.035)
[2019-07-29] MEDS: PANTOPRAZOLE 40 MG TAB PO SCH (22:34)
[2019-07-30] VITALS (55 sets, daily range): BP systolic 74–159; BP diastolic 26–81
[2019-07-30] MEDS: ACCU-CHEK COMFORT CURVE STRIP VI SCH ×6 (00:13→20:00)
[2019-07-30 00:57] LABS: Hematocrit 20.6 % (36.0-46.0)
[2019-07-30 01:01] LABS: Hemoglobin 6.9 g/dL (12.2-16.2)
[2019-07-30] MEDS: InsuLIN REG 1unit/0.01ml Soln (100units/ml) SC SCH ×6 (04:00→20:00)
[2019-07-30 05:36] LABS: Basophils # (auto) 0 10 ^3/uL (0-0.2); Basophils % (auto) 0.4 % (0.0-2.0); Eosinophils # (auto) 0.1 10 ^3/uL (0-0.8); Eosinophils % (auto) 0.9 % (0.0-7.0); Hematocrit 25.7 % (36.0-46.0); Hemoglobin 8.5 g/dL (12.2-16.2); Lymphocytes # (auto) 1.9 10 ^3/uL (0.4-5.4); Lymphocytes % (auto) 22.2 % (10.0-50.0); Mean Corpuscular Hemoglobin 30.3 pg (28.0-32.0); Mean Corpuscular Volume 91.8 fL (80.0-100.0); Monocytes # (auto) 0.7 10 ^3/uL (0-1.3); Monocytes % (auto) 8.5 % (0.0-12.0); Neutrophils # (auto) 5.9 10 ^3/uL (1.6-8.6); Platelet Count (auto) 224 10^3/uL (140-450); White Blood Cell 8.7 10^3/uL (4.4-10.8)
[2019-07-30] MEDS: SODIUM CHLORIDE 0.9% 1,000 ML IV SCH ×2 (06:05→18:18)
[2019-07-30 06:09] LABS: Albumin 2.6 g/dL (3.4-5.0); BUN/Creatinine Ratio 32.2; Bilirubin, Total 0.3 mg/dL (0.2-1.0); Calcium 8.4 mg/dL (8.5-10.1); Total Protein 5.4 g/dL (6.4-8.2)
[2019-07-30] MEDS ORDERED: NOREPINEPHRINE 8 MG/250ML KIT 250 ML IV ONE (06:33)
[2019-07-30] MEDS ORDERED: NOREPINEPHRINE 8 MG/250ML KIT 250 ML IV SCH (06:45)
[2019-07-30] MEDS ORDERED: NITROGLYCERIN 0.2MG/HR TOPICAL PATCH TD SCH (10:00)
[2019-07-30] MEDS: PANTOPRAZOLE 40 MG TAB PO SCH ×2 (10:39→22:33)
[2019-07-30] MEDS: CARVEDILOL 3.125 MG TAB PO SCH ×2 (11:10→22:33)
[2019-07-30] MEDS: Glucerna Carbsteady SHAKE Vanilla 8oz PO SCH ×2 (12:30→18:18)
[2019-07-30] MEDS: ISOSORBIDE MONONITRATE ER 60 MG TAB PO SCH (22:32)
[2019-07-31] MEDS: ACCU-CHEK COMFORT CURVE STRIP VI SCH ×6 (00:26→20:38)
[2019-07-31] MEDS: ACETAMINOPHEN 500 MG TAB PO PRN (01:27)
[2019-07-31] MEDS: SODIUM CHLORIDE 0.9% 1,000 ML IV SCH ×2 (03:58→05:32)
[2019-07-31] MEDS: InsuLIN REG 1unit/0.01ml Soln (100units/ml) SC SCH ×6 (04:00→20:38)
[2019-07-31 04:52] VITALS: BP 119/61
[2019-07-31 06:02] LABS: Basophils # (auto) 0 10 ^3/uL (0-0.2); Basophils % (auto) 0.4 % (0.0-2.0); Eosinophils # (auto) 0.1 10 ^3/uL (0-0.8); Eosinophils % (auto) 0.7 % (0.0-7.0); Hemoglobin 8.5 g/dL (12.2-16.2); Lymphocytes # (auto) 1.7 10 ^3/uL (0.4-5.4); Mean Corpuscular Hemoglobin 31.1 pg (28.0-32.0); Mean Corpuscular Hgb Conc. 33.9 g/dL (32.0-36.0); Mean Corpuscular Volume 91.7 fL (80.0-100.0); Monocytes # (auto) 0.5 10 ^3/uL (0-1.3); Neutrophils # (auto) 5.4 10 ^3/uL (1.6-8.6); Neutrophils % (auto) 69.9 % (37.0-80.0); Nucleated Red Blood Cells % 0.1 %; Platelet Count (auto) 221 10^3/uL (140-450); Red Blood Cells 2.73 10^6/uL (4.0-5.20); Red Cell Distribution Width 15.8 % (11.8-14.3); White Blood Cell 7.6 10^3/uL (4.4-10.8)
[2019-07-31 06:36] LABS: Potassium 4.8 mmol/L (3.5-5.1)
[2019-07-31 06:59] LABS: Albumin 2.4 g/dL (3.4-5.0); BUN/Creatinine Ratio 25.3; Bilirubin, Total 0.2 mg/dL (0.2-1.0); Calcium 8.3 mg/dL (8.5-10.1); Total Protein 4.9 g/dL (6.4-8.2)
[2019-07-31 08:49] VITALS: BP 110/53
[2019-07-31] MEDS: Glucerna Carbsteady SHAKE Vanilla 8oz PO SCH ×3 (09:00→17:46)
[2019-07-31] MEDS: ISOSORBIDE MONONITRATE ER 60 MG TAB PO SCH ×2 (10:00→22:10)
[2019-07-31] MEDS: CARVEDILOL 3.125 MG TAB PO SCH ×2 (10:41→22:04)
[2019-07-31] MEDS: PANTOPRAZOLE 40 MG TAB PO SCH ×2 (10:42→22:03)
[2019-07-31 12:32] VITALS: BP 162/76
[2019-07-31] MEDS: LACTATED RINGER'S 1,000 ML IV SCH (14:39)
[2019-07-31 16:42] VITALS: BP 139/75
[2019-07-31 22:00] VITALS: BP 158/82
[2019-08-01] MEDS: ACCU-CHEK COMFORT CURVE STRIP VI SCH ×7 (00:32→23:57)
[2019-08-01] MEDS: ACETAMINOPHEN 500 MG TAB PO PRN ×2 (03:03→21:54)
[2019-08-01] MEDS: InsuLIN REG 1unit/0.01ml Soln (100units/ml) SC SCH ×7 (04:00→23:57)
[2019-08-01] MEDS: LACTATED RINGER'S 1,000 ML IV SCH (04:05)
[2019-08-01 05:00] VITALS: BP 128/63
[2019-08-01 05:24] LABS: Basophils # (auto) 0 10 ^3/uL (0-0.2); Eosinophils # (auto) 0.1 10 ^3/uL (0-0.8); Lymphocytes # (auto) 1.6 10 ^3/uL (0.4-5.4); Mean Corpuscular Volume 91.3 fL (80.0-100.0); Monocytes # (auto) 0.5 10 ^3/uL (0-1.3); Monocytes % (auto) 7.1 % (0.0-12.0); Neutrophils # (auto) 4.8 10 ^3/uL (1.6-8.6)
[2019-08-01 05:27] LABS: Basophils % (auto) 0.4 % (0.0-2.0); Eosinophils % (auto) 1.2 % (0.0-7.0); Hematocrit 24.7 % (36.0-46.0); Hemoglobin 8.6 g/dL (12.2-16.2); Lymphocytes % (auto) 22.6 % (10.0-50.0); Mean Corpuscular Hemoglobin 31.8 pg (28.0-32.0); Mean Corpuscular Hgb Conc. 34.9 g/dL (32.0-36.0); Neutrophils % (auto) 68.7 % (37.0-80.0); Nucleated Red Blood Cells % 0.2 %; Platelet Count (auto) 220 10^3/uL (140-450); Red Blood Cells 2.71 10^6/uL (4.0-5.20); Red Cell Distribution Width 15.8 % (11.8-14.3)
[2019-08-01 05:41] LABS: Albumin 2.4 g/dL (3.4-5.0); Calcium 8.8 mg/dL (8.5-10.1); Potassium 4.7 mmol/L (3.5-5.1)
[2019-08-01 05:44] LABS: Bilirubin, Total 0.3 mg/dL (0.2-1.0)
[2019-08-01 09:00] VITALS: BP_SYST 117; BP_SYST 138; BP_DIAS 56; BP_DIAS 71
[2019-08-01] MEDS ORDERED: HYOSCYAMINE SULF 0.125 MG ODT TAB PO PRN (10:30)
[2019-08-01] MEDS: CARVEDILOL 3.125 MG TAB PO SCH ×2 (10:47→21:55)
[2019-08-01] MEDS: Glucerna Carbsteady SHAKE Vanilla 8oz PO SCH ×3 (10:47→17:45)
[2019-08-01] MEDS: ISOSORBIDE MONONITRATE ER 60 MG TAB PO SCH ×2 (10:48→21:55)
[2019-08-01] MEDS: PANTOPRAZOLE 40 MG TAB PO SCH ×2 (10:49→21:55)
[2019-08-01 13:00] VITALS: BP 151/82
[2019-08-01 16:51] VITALS: BP 146/73
[2019-08-01 22:00] VITALS: BP 123/92
[2019-08-02] VITALS (8 sets, daily range): BP systolic 109–163; BP diastolic 51–84
[2019-08-02] MEDS: InsuLIN REG 1unit/0.01ml Soln (100units/ml) SC SCH ×6 (04:00→23:41)
[2019-08-02] MEDS: ACCU-CHEK COMFORT CURVE STRIP VI SCH ×6 (04:17→23:40)
[2019-08-02 06:13] LABS: Basophils # (auto) 0 10 ^3/uL (0-0.2); Basophils % (auto) 0.5 % (0.0-2.0); Eosinophils # (auto) 0.1 10 ^3/uL (0-0.8); Eosinophils % (auto) 0.9 % (0.0-7.0); Hematocrit 23.9 % (36.0-46.0); Hemoglobin 7.9 g/dL (12.2-16.2); Lymphocytes # (auto) 1.5 10 ^3/uL (0.4-5.4); Lymphocytes % (auto) 20.5 % (10.0-50.0); Mean Corpuscular Hemoglobin 30.1 pg (28.0-32.0); Mean Corpuscular Hgb Conc. 32.9 g/dL (32.0-36.0); Mean Corpuscular Volume 91.7 fL (80.0-100.0); Monocytes # (auto) 0.5 10 ^3/uL (0-1.3); Monocytes % (auto) 7.5 % (0.0-12.0); Neutrophils # (auto) 5.1 10 ^3/uL (1.6-8.6); Neutrophils % (auto) 70.6 % (37.0-80.0); Platelet Count (auto) 222 10^3/uL (140-450); Red Blood Cells 2.61 10^6/uL (4.0-5.20); Red Cell Distribution Width 15.9 % (11.8-14.3); White Blood Cell 7.2 10^3/uL (4.4-10.8)
[2019-08-02] MEDS: Glucerna Carbsteady SHAKE Vanilla 8oz PO SCH ×3 (08:00→18:25)
[2019-08-02] MEDS: traMADol HCL 50 MG TAB PO PRN (08:07)
[2019-08-02] MEDS: ISOSORBIDE MONONITRATE ER 60 MG TAB PO SCH ×2 (10:00→21:18)
[2019-08-02] MEDS: CARVEDILOL 3.125 MG TAB PO SCH ×2 (10:00→21:18)
[2019-08-02] MEDS: PANTOPRAZOLE 40 MG TAB PO SCH ×2 (10:12→21:18)
[2019-08-02 10:25] LABS: BUN/Creatinine Ratio 23.1
[2019-08-03] MEDS: ACCU-CHEK COMFORT CURVE STRIP VI SCH ×5 (03:44→21:00)
[2019-08-03] MEDS: InsuLIN REG 1unit/0.01ml Soln (100units/ml) SC SCH ×5 (03:44→21:00)
[2019-08-03 05:00] VITALS: BP 127/58
[2019-08-03] MEDS: Glucerna Carbsteady SHAKE Vanilla 8oz PO SCH ×3 (08:00→18:46)
[2019-08-03 08:33] VITALS: BP 132/71
[2019-08-03] MEDS: PANTOPRAZOLE 40 MG TAB PO SCH ×3 (09:17→22:00)
[2019-08-03] MEDS: CARVEDILOL 3.125 MG TAB PO SCH ×3 (09:17→22:00)
[2019-08-03] MEDS: ISOSORBIDE MONONITRATE ER 60 MG TAB PO SCH ×3 (09:17→22:01)
[2019-08-03] MEDS ORDERED: PROPOFOL 10 MG/ML 20 ML IV ONE (09:51)
[2019-08-03] MEDS ORDERED: LIDOCAINE HCL 100 MG/5ML (2%) SYRG INJ IV ONE (09:51)
[2019-08-03] MEDS ORDERED: MIDAZOLAM HCL 1MG/1ML-2 ML VIAL ONE (09:51)
[2019-08-03] MEDS ORDERED: fentaNYL CITRATE 100 MCG/2 ML VL ONE (09:56)
[2019-08-03] MEDS ORDERED: ONDANSETRON HCL 4 MG/2 ML VIAL IV PRN (10:15)
[2019-08-03] MEDS ORDERED: ACCU-CHEK COMFORT CURVE STRIP VI ONE (10:15)
[2019-08-03 10:42] VITALS: BP 139/62
[2019-08-03 10:55] LABS: Basophils # (auto) 0 10 ^3/uL (0-0.2); Basophils % (auto) 0.3 % (0.0-2.0); Eosinophils # (auto) 0 10 ^3/uL (0-0.8); Eosinophils % (auto) 0.6 % (0.0-7.0); Hematocrit 26.5 % (36.0-46.0); Hemoglobin 8.7 g/dL (12.2-16.2); Lymphocytes # (auto) 1.1 10 ^3/uL (0.4-5.4); Lymphocytes % (auto) 14.9 % (10.0-50.0); Mean Corpuscular Hgb Conc. 32.9 g/dL (32.0-36.0); Mean Corpuscular Volume 91.4 fL (80.0-100.0); Monocytes # (auto) 0.5 10 ^3/uL (0-1.3); Monocytes % (auto) 6.9 % (0.0-12.0); Neutrophils # (auto) 5.9 10 ^3/uL (1.6-8.6); Neutrophils % (auto) 77.3 % (37.0-80.0); Nucleated Red Blood Cells % 0.1 %; Platelet Count (auto) 193 10^3/uL (140-450); Red Blood Cells 2.89 10^6/uL (4.0-5.20); Red Cell Distribution Width 15.2 % (11.8-14.3); White Blood Cell 7.7 10^3/uL (4.4-10.8)
[2019-08-03 12:37] VITALS: BP 147/68
[2019-08-03] MEDS: ACETAMINOPHEN 500 MG TAB PO PRN (14:14)
[2019-08-03] MEDS: traMADol HCL 50 MG TAB PO PRN (15:24)
[2019-08-03 17:05] VITALS: BP 124/51
[2019-08-03 22:00] VITALS: BP 118/61
[2019-08-04] MEDS: InsuLIN REG 1unit/0.01ml Soln (100units/ml) SC SCH ×6 (00:51→20:00)
[2019-08-04] MEDS: ACCU-CHEK COMFORT CURVE STRIP VI SCH ×6 (00:51→20:40)
[2019-08-04 05:00] VITALS: BP 109/52
[2019-08-04] MEDS: Glucerna Carbsteady SHAKE Vanilla 8oz PO SCH (07:20)
[2019-08-04 07:50] LABS: Basophils # (auto) 0 10 ^3/uL (0-0.2); Eosinophils # (auto) 0.1 10 ^3/uL (0-0.8); Hemoglobin 8.1 g/dL (12.2-16.2)
[2019-08-04 07:52] LABS: Basophils % (auto) 0.5 % (0.0-2.0); Hematocrit 24.2 % (36.0-46.0); Lymphocytes # (auto) 1.6 10 ^3/uL (0.4-5.4); Lymphocytes % (auto) 22.5 % (10.0-50.0); Mean Corpuscular Hemoglobin 30.4 pg (28.0-32.0); Mean Corpuscular Hgb Conc. 33.2 g/dL (32.0-36.0); Mean Corpuscular Volume 91.6 fL (80.0-100.0); Monocytes # (auto) 0.6 10 ^3/uL (0-1.3); Monocytes % (auto) 8.3 % (0.0-12.0); Neutrophils # (auto) 4.7 10 ^3/uL (1.6-8.6); Neutrophils % (auto) 67.7 % (37.0-80.0); Nucleated Red Blood Cells % 0.1 %; Platelet Count (auto) 205 10^3/uL (140-450); Red Blood Cells 2.65 10^6/uL (4.0-5.20); Red Cell Distribution Width 15.2 % (11.8-14.3); White Blood Cell 6.9 10^3/uL (4.4-10.8)
[2019-08-04 08:09] VITALS: BP 146/72
[2019-08-04 08:31] LABS: Calcium 9.2 mg/dL (8.5-10.1); Potassium 4.8 mmol/L (3.5-5.1)
[2019-08-04] MEDS ORDERED: GOLYTELY 4L KIT PO ONE (10:00)
[2019-08-04] MEDS: CARVEDILOL 3.125 MG TAB PO SCH ×2 (10:15→22:19)
[2019-08-04] MEDS: ISOSORBIDE MONONITRATE ER 60 MG TAB PO SCH ×2 (10:16→22:19)
[2019-08-04] MEDS: PANTOPRAZOLE 40 MG TAB PO SCH ×2 (10:16→22:19)
[2019-08-04] MEDS ORDERED: EPOETIN ALFA 10,000 UNIT/1 ML VIAL SC ONE ×2 (11:45→21:00)
[2019-08-04 12:49] VITALS: BP 151/89
[2019-08-04 16:19] VITALS: BP 156/82
[2019-08-04] MEDS: FERROUS SULFATE 325 MG TAB PO SCH (18:00)
[2019-08-04] MEDS: ACETAMINOPHEN 500 MG TAB PO PRN (18:42)
[2019-08-04 22:00] VITALS: BP 139/64
[2019-08-05] VITALS (9 sets, daily range): BP systolic 96–187; BP diastolic 39–88
[2019-08-05] MEDS: InsuLIN REG 1unit/0.01ml Soln (100units/ml) SC SCH ×7 (04:00→23:21)
[2019-08-05] MEDS: ACCU-CHEK COMFORT CURVE STRIP VI SCH ×7 (05:13→23:22)
[2019-08-05 06:29] LABS: Basophils # (auto) 0 10 ^3/uL (0-0.2); Eosinophils # (auto) 0.1 10 ^3/uL (0-0.8); Hemoglobin 7.2 g/dL (12.2-16.2); Monocytes # (auto) 0.4 10 ^3/uL (0-1.3); Red Cell Distribution Width 14.8 % (11.8-14.3)
[2019-08-05 06:33] LABS: Basophils % (auto) 0.7 % (0.0-2.0); Eosinophils % (auto) 1.1 % (0.0-7.0); Lymphocytes # (auto) 1.5 10 ^3/uL (0.4-5.4); Lymphocytes % (auto) 25.9 % (10.0-50.0); Mean Corpuscular Hemoglobin 30.7 pg (28.0-32.0); Mean Corpuscular Hgb Conc. 34.1 g/dL (32.0-36.0); Mean Corpuscular Volume 90.1 fL (80.0-100.0); Monocytes % (auto) 7.4 % (0.0-12.0); Neutrophils # (auto) 3.7 10 ^3/uL (1.6-8.6); Neutrophils % (auto) 64.9 % (37.0-80.0); Platelet Count (auto) 209 10^3/uL (140-450); Red Blood Cells 2.33 10^6/uL (4.0-5.20); White Blood Cell 5.7 10^3/uL (4.4-10.8)
[2019-08-05 06:49] LABS: Potassium 4.6 mmol/L (3.5-5.1)
[2019-08-05 06:55] LABS: Albumin 2.3 g/dL (3.4-5.0); BUN/Creatinine Ratio 22.9; Bilirubin, Total 0.3 mg/dL (0.2-1.0); Calcium 8.9 mg/dL (8.5-10.1); Total Protein 5.2 g/dL (6.4-8.2)
[2019-08-05] MEDS: FERROUS SULFATE 325 MG TAB PO SCH ×2 (09:08→18:11)
[2019-08-05] MEDS ORDERED: ePHEDrine SULFATE 50 MG/ML AMP IV PRN (10:30)
[2019-08-05] MEDS ORDERED: ONDANSETRON HCL 4 MG/2 ML VIAL IV PRN (10:30)
[2019-08-05] MEDS ORDERED: hydrALAZINE HCL 20 MG/ML VL IV PRN (10:30)
[2019-08-05] MEDS ORDERED: fentaNYL CITRATE 100 MCG/2 ML VL IV PRN (10:30)
[2019-08-05] MEDS ORDERED: MIDAZOLAM HCL 1MG/1ML-2 ML VIAL ONE (10:33)
[2019-08-05] MEDS ORDERED: fentaNYL CITRATE 100 MCG/2 ML VL ONE (10:33)
[2019-08-05] MEDS ORDERED: PROPOFOL 10 MG/ML 20 ML IV ONE (10:44)
[2019-08-05] MEDS: PANTOPRAZOLE 40 MG TAB PO SCH ×2 (12:03→21:15)
[2019-08-05] MEDS: CARVEDILOL 3.125 MG TAB PO SCH ×2 (12:03→21:15)
[2019-08-05] MEDS: ISOSORBIDE MONONITRATE ER 60 MG TAB PO SCH ×2 (12:03→21:16)
== END 2019-08-06 00:01 | disposition left against medical advice (07) | DRG 377 ==
LOC: ER 10:17 → EDBD 10:17 → OVERFLOW 10:18 → ICU WEST 19:12 → WEST WING 07-30 17:31 → TELE-WESTW 07-30 17:37
PROVIDERS: ADMIT Internal Medicine; ATTEND Internal Medicine Cardiovascular Disease
PROC: 30233N1 Transfusion of Nonautologous Red Blood Cells into Peripheral Vein, Percutaneous Approach (ICD-10-PCS; principal; 2019-07-30)
PROC: 0DB68ZX Excision of Stomach, Via Natural or Artificial Opening Endoscopic, Diagnostic (ICD-10-PCS; 2019-08-03)
PROC: 0DJD8ZZ Inspection of Lower Intestinal Tract, Via Natural or Artificial Opening Endoscopic (ICD-10-PCS; 2019-08-05)
DX: K29.71 Gastritis, unspecified, with bleeding (principal); R57.8 Other shock; N17.9 Acute kidney failure, unspecified; E44.0 Moderate protein-calorie malnutrition; I50.42 Chronic combined systolic (congestive) and diastolic (congestive) heart failure; I13.0 Hypertensive heart and chronic kidney disease with heart failure and stage 1 through stage 4 chronic kidney disease, or unspecified chronic kidney disease; E87.2 Acidosis; G45.9 Transient cerebral ischemic attack, unspecified; K57.31 Diverticulosis of large intestine without perforation or abscess with bleeding; D64.9 Anemia, unspecified; N18.3 Chronic kidney disease, stage 3 (moderate); E11.22 Type 2 diabetes mellitus with diabetic chronic kidney disease; E11.65 Type 2 diabetes mellitus with hyperglycemia; E11.51 Type 2 diabetes mellitus with diabetic peripheral angiopathy without gangrene; J44.9 Chronic obstructive pulmonary disease, unspecified; E87.5 Hyperkalemia; D35.02 Benign neoplasm of left adrenal gland; D35.01 Benign neoplasm of right adrenal gland; E86.0 Dehydration; K59.00 Constipation, unspecified; Z53.29 Procedure and treatment not carried out because of patient's decision for other reasons; E78.5 Hyperlipidemia, unspecified; I25.10 Atherosclerotic heart disease of native coronary artery without angina pectoris; Z79.01 Long term (current) use of anticoagulants; Z82.49 Family history of ischemic heart disease and other diseases of the circulatory system; Z86.73 Personal history of transient ischemic attack (TIA), and cerebral infarction without residual deficits; Z90.710 Acquired absence of both cervix and uterus; Z68.28 Body mass index [BMI] 28.0-28.9, adult
CPT/HCPCS: 36415; 43239; 45378; 70450; 71045; 74176; 80048; 80053; 81001; 82270; 82378; 82550; 82962; 83036; 83880; 84443; 84484; 85014; 85018; 85025; 85045; 85610; 85652; 85730; 86141; 86850; 86900; 86901; 86920; 87081; 93005; 93306; 99291; C9113; G0378; J0885; J1815; J2250; J2405; J2704

== ENCOUNTER 2019-08-06 03:27 | Inpatient (IN) | payer OTHER ==
[~2019-08-06] VITALS: Ht 152.4 cm; Wt 75.8 kg
[2019-08-06 04:37] LABS: Basophils # (auto) 0 10 ^3/uL (0-0.2); Basophils % (auto) 0.5 % (0.0-2.0); Eosinophils # (auto) 0.1 10 ^3/uL (0-0.8); Eosinophils % (auto) 0.6 % (0.0-7.0); Hematocrit 28.4 % (36.0-46.0); Hemoglobin 9.6 g/dL (12.2-16.2); Lymphocytes # (auto) 1.3 10 ^3/uL (0.4-5.4); Lymphocytes % (auto) 15.6 % (10.0-50.0); Mean Corpuscular Hemoglobin 30.8 pg (28.0-32.0); Mean Corpuscular Hgb Conc. 33.7 g/dL (32.0-36.0); Mean Corpuscular Volume 91.5 fL (80.0-100.0); Monocytes # (auto) 0.6 10 ^3/uL (0-1.3); Monocytes % (auto) 6.6 % (0.0-12.0); Neutrophils # (auto) 6.6 10 ^3/uL (1.6-8.6); Neutrophils % (auto) 76.7 % (37.0-80.0); Platelet Count (auto) 233 10^3/uL (140-450); Red Cell Distribution Width 15.2 % (11.8-14.3); White Blood Cell 8.6 10^3/uL (4.4-10.8)
[2019-08-06 04:58] LABS: Albumin 2.6 g/dL (3.4-5.0); Calcium 9.2 mg/dL (8.5-10.1); Magnesium 1.8 mg/dL (1.6-2.6); Potassium 4.6 mmol/L (3.5-5.1)
[2019-08-06 05:00] LABS: BUN/Creatinine Ratio 19.6
[2019-08-06 05:05] LABS: Bilirubin, Total 0.3 mg/dL (0.2-1.0); Total Protein 5.9 g/dL (6.4-8.2)
[2019-08-06 05:09] LABS: INR 0.99 (0.9-1.15); Partial Thromboplastin Time 27.1 sec (23.64-32.05)
[2019-08-06] MEDS ORDERED: traMADol HCL 50 MG TAB PO PRN (08:45)
[2019-08-06] MEDS ORDERED: NITROGLYCERIN 0.4 MG SL TAB SL PRN (08:45)
[2019-08-06] MEDS ORDERED: ONDANSETRON HCL 4 MG/2 ML VIAL IV PRN (08:45)
[2019-08-06] MEDS ORDERED: DEXTROSE (50%) 50ML SYRG IV ONE (08:45)
[2019-08-06] MEDS ORDERED: ACETAMINOPHEN 500 MG TAB PO PRN (08:45)
[2019-08-06] MEDS ORDERED: HYOSCYAMINE SULF 0.125 MG ODT TAB PO PRN (08:45)
[2019-08-06] MEDS ORDERED: MORPHINE SULF INJ 2 MG/ML SYRINGE 1ML IV PRN ×2 (08:45)
[2019-08-06] MEDS ORDERED: LACTULOSE 20Gm/30ML SOLN PO PRN (08:45)
[2019-08-06] MEDS: PANTOPRAZOLE 40 MG TAB PO SCH ×2 (09:46→22:13)
[2019-08-06] MEDS: ISOSORBIDE MONONITRATE ER 60 MG TAB PO SCH ×2 (09:46→22:13)
[2019-08-06] MEDS: CARVEDILOL 3.125 MG TAB PO SCH ×2 (09:47→22:11)
[2019-08-06] MEDS: InsuLIN REG 1unit/0.01ml Soln (100units/ml) SC SCH ×3 (12:09→22:00)
[2019-08-06] MEDS: ACCU-CHEK COMFORT CURVE STRIP VI SCH ×3 (12:10→22:24)
[2019-08-06 17:00] VITALS: BP 154/61
[2019-08-06] MEDS ORDERED: FERROUS SULFATE 325 MG TAB PO SCH (18:00)
[2019-08-06 21:55] VITALS: BP 143/80
[2019-08-07 05:00] VITALS: BP 129/56
[2019-08-07 05:45] LABS: Basophils # (auto) 0 10 ^3/uL (0-0.2); Basophils % (auto) 0.2 % (0.0-2.0); Eosinophils # (auto) 0 10 ^3/uL (0-0.8); Eosinophils % (auto) 0.1 % (0.0-7.0); Hematocrit 28.3 % (36.0-46.0); Hemoglobin 9.5 g/dL (12.2-16.2); Lymphocytes # (auto) 1.1 10 ^3/uL (0.4-5.4); Lymphocytes % (auto) 10.1 % (10.0-50.0); Mean Corpuscular Hemoglobin 30.5 pg (28.0-32.0); Mean Corpuscular Hgb Conc. 33.6 g/dL (32.0-36.0); Mean Corpuscular Volume 90.7 fL (80.0-100.0); Monocytes # (auto) 0.7 10 ^3/uL (0-1.3); Monocytes % (auto) 5.9 % (0.0-12.0); Neutrophils # (auto) 9.3 10 ^3/uL (1.6-8.6); Neutrophils % (auto) 83.7 % (37.0-80.0); Nucleated Red Blood Cells % 0.1 %; Platelet Count (auto) 279 10^3/uL (140-450); Red Blood Cells 3.12 10^6/uL (4.0-5.20); White Blood Cell 11.1 10^3/uL (4.4-10.8)
[2019-08-07 05:50] LABS: BUN/Creatinine Ratio 20.2; Calcium 9.4 mg/dL (8.5-10.1); Potassium 4.8 mmol/L (3.5-5.1)
[2019-08-07] MEDS: ACCU-CHEK COMFORT CURVE STRIP VI SCH (05:54)
[2019-08-07] MEDS: InsuLIN REG 1unit/0.01ml Soln (100units/ml) SC SCH ×2 (06:12→06:22)
== END 2019-08-07 08:56 | disposition left against medical advice (07) | DRG 303 ==
LOC: ER 03:27 → TELE 03:28 → TELE-WESTW 12:30
PROVIDERS: ADMIT Internal Medicine Cardiovascular Disease; ATTEND Internal Medicine Cardiovascular Disease
DX: I25.110 Atherosclerotic heart disease of native coronary artery with unstable angina pectoris (principal); D62 Acute posthemorrhagic anemia; E44.0 Moderate protein-calorie malnutrition; E11.21 Type 2 diabetes mellitus with diabetic nephropathy; I10 Essential (primary) hypertension; Z68.32 Body mass index [BMI] 32.0-32.9, adult; Z87.11 Personal history of peptic ulcer disease; Z90.710 Acquired absence of both cervix and uterus; Z98.61 Coronary angioplasty status; Z53.29 Procedure and treatment not carried out because of patient's decision for other reasons
CPT/HCPCS: 36415; 71045; 80048; 80053; 82962; 83735; 83880; 84484; 85025; 85379; 85610; 85730; 86850; 86900; 86901; 93005; G0378; J1815

== ENCOUNTER → 2019-08-15 | Outpatient (CLI) | payer OTHER ==
[2019-08-15 16:03] LABS: Basophils # (auto) 0 10 ^3/uL (0-0.2); Eosinophils # (auto) 0.1 10 ^3/uL (0-0.8); Hemoglobin 8.1 g/dL (12.2-16.2); Lymphocytes # (auto) 1.3 10 ^3/uL (0.4-5.4); Mean Corpuscular Volume 86.1 fL (80.0-100.0); Nucleated Red Blood Cells % 0.1 %; Red Cell Distribution Width 19.5 % (11.8-14.3)
[2019-08-15 16:04] LABS: Basophils % (auto) 0.3 % (0.0-2.0); Eosinophils % (auto) 0.8 % (0.0-7.0); Hematocrit 24.7 % (36.0-46.0); Lymphocytes % (auto) 13.8 % (10.0-50.0); Mean Corpuscular Hemoglobin 28.2 pg (28.0-32.0); Mean Corpuscular Hgb Conc. 32.7 g/dL (32.0-36.0); Monocytes # (auto) 0.7 10 ^3/uL (0-1.3); Monocytes % (auto) 7.1 % (0.0-12.0); Neutrophils # (auto) 7.4 10 ^3/uL (1.6-8.6); Platelet Count (auto) 533 10^3/uL (140-450); Red Blood Cells 2.86 10^6/uL (4.0-5.20); White Blood Cell 9.5 10^3/uL (4.4-10.8)
[2019-08-15 16:18] LABS: BUN/Creatinine Ratio 18.3; Calcium 9.2 mg/dL (8.5-10.1); Potassium 4.7 mmol/L (3.5-5.1)
== END | disposition home or self-care (01) ==
LOC: LAB 15:13
PROVIDERS: ATTEND Internal Medicine Cardiovascular Disease
DX: D64.9 Anemia, unspecified (principal)
CPT/HCPCS: 36415; 80048; 85025

== ENCOUNTER → 2019-08-18 | Outpatient (CLI) | payer OTHER ==
[~2019-08-18] VITALS: Ht 152.4 cm; Wt 63.5 kg
[~2019-08-18] MED LIST changes: +ADENOSINE 53 MG in GIVE UN-DILUTED 0 ML IV ONE; +ADENOSINE 90 MG/30 ML INJ IV ONE; -ASPI-404 PO; +ASPI-543 PO
== END | disposition home or self-care (01) ==
LOC: Rad HDHVI 07:45
PROVIDERS: ATTEND Internal Medicine Cardiovascular Disease
DX: Z01.810 Encounter for preprocedural cardiovascular examination (principal); E11.9 Type 2 diabetes mellitus without complications; I10 Essential (primary) hypertension; I25.10 Atherosclerotic heart disease of native coronary artery without angina pectoris; E78.00 Pure hypercholesterolemia, unspecified; R07.9 Chest pain, unspecified
CPT/HCPCS: 78452; 93005; 93306; 96374; 96375; A9500; J0153

== ENCOUNTER → 2019-08-24 | Outpatient (CLI) | payer OTHER ==
[~2019-08-24] MED LIST changes: -ADENOSINE 53 MG in GIVE UN-DILUTED 0 ML IV ONE; -ADENOSINE 90 MG/30 ML INJ IV ONE; +ASPI-404 PO; -ASPI-543 PO
[2019-08-24 12:31] LABS: Basophils # (auto) 0 10 ^3/uL (0-0.2); Eosinophils # (auto) 0.1 10 ^3/uL (0-0.8); Lymphocytes % (auto) 15.9 % (10.0-50.0); Monocytes # (auto) 0.5 10 ^3/uL (0-1.3); Platelet Count (auto) 390 10^3/uL (140-450)
[2019-08-24 12:32] LABS: Basophils % (auto) 0.5 % (0.0-2.0); Eosinophils % (auto) 0.8 % (0.0-7.0); Hematocrit 24.4 % (36.0-46.0); Hemoglobin 7.9 g/dL (12.2-16.2); Lymphocytes # (auto) 1.4 10 ^3/uL (0.4-5.4); Mean Corpuscular Hemoglobin 28.1 pg (28.0-32.0); Mean Corpuscular Hgb Conc. 32.2 g/dL (32.0-36.0); Mean Corpuscular Volume 87.4 fL (80.0-100.0); Neutrophils % (auto) 76.8 % (37.0-80.0); Nucleated Red Blood Cells % 0.2 %; Red Blood Cells 2.79 10^6/uL (4.0-5.20); White Blood Cell 9.1 10^3/uL (4.4-10.8)
[2019-08-24 12:33] LABS: Red Cell Distribution Width 20.5 % (11.8-14.3)
== END | disposition home or self-care (01) ==
LOC: LAB 08:59
PROVIDERS: ATTEND Internal Medicine Cardiovascular Disease
DX: D64.9 Anemia, unspecified (principal)
CPT/HCPCS: 36415; 85025

== ENCOUNTER 2019-09-01 15:22 | Inpatient (IN) | payer OTHER ==
[~2019-09-01] VITALS: Ht 162.6 cm; Wt 61.4 kg
[2019-09-01] MEDS ORDERED: SODIUM CHLORIDE 0.9% 500 ML IV ONE (15:39)
[2019-09-01] MEDS ORDERED: PANTOPRAZOLE 40 MG/10 ML VIAL INJ IV ONE (15:45)
[2019-09-01 16:20] LABS: Basophils # (auto) 0 10 ^3/uL (0-0.2); Basophils % (auto) 0.4 % (0.0-2.0); Eosinophils # (auto) 0 10 ^3/uL (0-0.8); Monocytes # (auto) 0.5 10 ^3/uL (0-1.3); Neutrophils # (auto) 3.1 10 ^3/uL (1.6-8.6); Platelet Count (auto) 207 10^3/uL (140-450)
[2019-09-01 16:23] LABS: Eosinophils % (auto) 0.7 % (0.0-7.0); Mean Corpuscular Volume 90.6 fL (80.0-100.0); Monocytes % (auto) 9.8 % (0.0-12.0); Neutrophils % (auto) 67.1 % (37.0-80.0); White Blood Cell 4.6 10^3/uL (4.4-10.8)
[2019-09-01 16:34] LABS: Albumin 2.9 g/dL (3.4-5.0); BUN/Creatinine Ratio 19.4; Calcium 8.6 mg/dL (8.5-10.1); Potassium 4.9 mmol/L (3.5-5.1)
[2019-09-01 16:40] LABS: Bilirubin, Total 0.2 mg/dL (0.2-1.0); Total Protein 5.8 g/dL (6.4-8.2)
[2019-09-01 16:51] LABS: Red Cell Distribution Width 20.4 % (11.8-14.3)
[2019-09-01 16:52] LABS: Hemoglobin 6.1 g/dL (12.2-16.2)
[2019-09-01] MEDS: SODIUM CHLORIDE 0.9% 1,000 ML IV SCH (17:01)
[2019-09-01] MEDS ORDERED: DOCUSATE SOD 100 MG CAP PO PRN (17:15)
[2019-09-01] MEDS ORDERED: MORPHINE SULF INJ 2 MG/ML SYRINGE 1ML IV PRN ×3 (17:15)
[2019-09-01] MEDS ORDERED: FUROSEMIDE 20 MG/2 ML VIAL IV ONE (17:15)
[2019-09-01] MEDS ORDERED: LORazepam 0.5 MG TAB PO PRN (17:15)
[2019-09-01] MEDS ORDERED: HYDROcodone-ACET 5/325MG TAB PO PRN (17:15)
[2019-09-01] MEDS ORDERED: ALUM & MAG HYDROX-SIMETH LIQ(MAALOX) 30 ML PO PRN (17:15)
[2019-09-01] MEDS ORDERED: NITROGLYCERIN 0.4 MG SL TAB SL PRN ×2 (17:15)
[2019-09-01] MEDS ORDERED: SODIUM FERR GLUC 62.5MG/5ML 125 MG in SODIUM CHL 0.9% 100 ML IV ONE (17:15)
[2019-09-01] MEDS ORDERED: ONDANSETRON HCL 4 MG/2 ML VIAL IV PRN (17:15)
[2019-09-01 17:28] LABS: Cholesterol 159 mg/dL (< 200)
[2019-09-01 17:30] LABS: HDL Cholesterol 40 mg/dL (40-59); LDL Cholesterol 93 mg/dL (< 100); Triglycerides 249 mg/dL (< 150)
[2019-09-01] MEDS ORDERED: IRON SUCROSE COMPLEX 200 MG in SODIUM CHL 0.9% 100 ML IV ONE (17:30)
[2019-09-01] MEDS ORDERED: FUROSEMIDE 20 MG/2 ML VIAL IV SCH (18:00)
--- NOTE | 2019-09-01 18:13 | NUR ---
MS admit from ER ESTEFANY THOMAS admitted to tele/MS after SBAR received. Patient oriented to FAY IVORY RN primary RN, TELE unit, room 217, bed A, and unit policies regarding patient care and visiting hours. Patient weighed by bedscale and encouraged to call if they need something. All questions and concerns addressed, patient verbalized understanding
[2019-09-01] MEDS ORDERED: LACTATED RINGER'S 1,000 ML IV ONE (18:30)
[2019-09-01 18:39] VITALS: BP 87/54
--- NOTE | 2019-09-01 18:59 | NUR ---
CARE ENDORSED TO NOC RN.
[2019-09-01 21:09] VITALS: BP 96/46
--- NOTE | 2019-09-01 21:18 | NUR ---
Fist unit of PBRCs started. VSS BP-96/49, T-98.6, RR- 16, o2 sat- 94%, P-76.
--- NOTE | 2019-09-01 21:33 | NUR ---
First 15 minutes into PRBC transfusion, no reaction noted. Patient states she feels fine but is tired. Call light is within reach, will continue to monitor.
[2019-09-01 21:34] VITALS: BP 88/48
[2019-09-01 22:00] VITALS: BP 96/49
[2019-09-01] MEDS ORDERED: FAMOTIDINE (10MG/ML) 2ML VL IV SCH (22:00)
[2019-09-01] MEDS: ATORVASTATIN 20 MG TAB PO SCH (22:04)
[2019-09-01] MEDS: ACETAMINOPHEN 500 MG TAB PO SCH (22:04)
[2019-09-02] VITALS (7 sets, daily range): BP systolic 89–133; BP diastolic 45–100
--- NOTE | 2019-09-02 00:27 | NUR ---
PRBC transfusion ended. No reaction noted. Patient tolerated well.
[2019-09-02] MEDS: SODIUM CHLORIDE 0.9% 1,000 ML IV SCH (02:29)
[2019-09-02] MEDS ORDERED: DEXTROSE (50%) 50ML SYRG IV PRN (02:45)
[2019-09-02] MEDS: ACETAMINOPHEN 500 MG TAB PO SCH ×4 (06:07→22:55)
[2019-09-02] MEDS: InsuLIN REG 1unit/0.01ml Soln (100units/ml) SC SCH ×3 (06:07→17:00)
[2019-09-02] MEDS: ACCU-CHEK COMFORT CURVE STRIP VI SCH ×4 (06:07→22:56)
[2019-09-02 06:19] LABS: % Iron Saturation 92.7 % (15-50)
[2019-09-02 06:23] LABS: Ferritin 109.5 ng/mL (10-322)
[2019-09-02 06:24] LABS: Folate (Folic Acid) 9.39 ng/mL (5.38-24)
--- NOTE | 2019-09-02 07:40 | NUR ---
Opening Shift Note Assumed care of patient, awake and alert. No S/S of distress/SOB or pain. Instructed on POC and to call for assist PRN. Bed at lowest locked position and call light within reach. Will continue to monitor for changes Q1hr and PRN.
[2019-09-02] MEDS: CLOPIDOGREL BISULFATE 75 MG TAB PO SCH (10:00)
[2019-09-02] MEDS: ASPirin-EC 81 mg tab PO SCH (10:00)
[2019-09-02] MEDS ORDERED: SODIUM FERR GLUC 125 MG in NS 100 ML IV SCH (12:00)
[2019-09-02] MEDS ORDERED: IRON SUCROSE COMPLEX 200 MG in SODIUM CHL 0.9% 100 ML IV SCH (12:00)
[2019-09-02] MEDS: LISINOPRIL 20 MG TAB PO SCH (12:12)
[2019-09-02] MEDS: amLODIPine BESYLATE 5 MG TAB PO SCH (12:13)
[2019-09-02] MEDS: PANTOPRAZOLE 40 MG/10 ML VIAL INJ IV SCH ×2 (12:14→22:56)
--- NOTE | 2019-09-02 18:14 | NUR ---
PAIN PATIENT C/O A HEADACHE RATES THE PAIN AT 5/10.ADMINISTERED MEDICATION PER MD ORDERS
--- NOTE | 2019-09-02 18:40 | NUR ---
ROUNDS Patient is comfortably resting in bed, NS running at 60mls/hour. No c/o pain, no s/s sob noted/stated. Bed at lowest locked position and call light within reach.
--- NOTE | 2019-09-02 18:58 | NUR ---
closing note Patient comfortably resting in bed. call light within reach. bed at lowest locked position. will endorse care to NOC BARI Alejandro.
--- NOTE | 2019-09-02 19:35 | NUR ---
Opening Shift Note Assumed care of patient, awake and alert. No S/S of distress/SOB or pain. Instructed on POC and to call for assist PRN, will continue to monitor for changes Q1hr and PRN.
--- NOTE | 2019-09-02 20:00 | NUR ---
Patient's daughter Jennifer Carlson called regarding patient's status. Password verified. Patient's daughter very argumentative, accusing me that I do not know anything, and that the patient is not being given proper care. Daughter allowed to ventilate. Family member was informed about the plan of care. Daughter eventually calmed down and verbalized understanding. All questions and concerns addressed. Communication with the daughter relayed to the patient. Patient care continued.
--- NOTE | 2019-09-02 20:30 | NUR ---
Patient's son called per confidential secretary. Advised confidential secretary to inform patient's son to talk to her sister since I just updated her with patient care. Per the confidential secretary, patient's son got upset and wanted to talk to special agent in charge. Patient is alert and oriented, so I asked patient who the main person to communicate with. Per patient we can communicate to both, because the siblings do not get along. After further discussion with the patient, she agreed for me to just communicate with the daughter. Patient care continued.
--- NOTE | 2019-09-02 21:20 | NUR ---
Notified Dr. Gtz that there was repeat Hemoglobin after 1 unit of PRBC was given. Dr. Gtz ordered H & H. Lab will be followed up. Care continued.
[2019-09-02 21:50] LABS: Hemoglobin 7.6 g/dL (12.2-16.2)
[2019-09-02 21:58] LABS: Hematocrit 23.8 % (36.0-46.0)
[2019-09-02] MEDS ORDERED: InsuLIN REG 1unit/0.01ml Soln (100units/ml) SC SCH (22:00)
[2019-09-02] MEDS: ATORVASTATIN 20 MG TAB PO SCH (22:56)
--- NOTE | 2019-09-02 23:45 | NUR ---
Hemoglobin result 7.6. Dr. Gtz made aware. 1 unit PRBC was ordered. Care continued.
[2019-09-03] VITALS (9 sets, daily range): BP systolic 116–149; BP diastolic 52–75
--- NOTE | 2019-09-03 00:40 | NUR ---
Patient informed of the doctor's order for 1 unit of PRBC. Patient educated regarding blood transfusion protocol, and possible adverse reaction. Patient agreed, verbalized understanding. All questions and concerns addressed. Initial vital signs taken, blood transfusion started after verification with another RN. Will closely monitor patient.
--- NOTE | 2019-09-03 01:00 | NUR ---
Blood still transfusing, no signs nor symptoms of blood transfusion reaction. Will continue to closely monitor patient.
--- NOTE | 2019-09-03 02:00 | NUR ---
Blood still transfusing, no signs nor symptoms of blood transfusion reaction. Will continue to closely monitor patient.
--- NOTE | 2019-09-03 02:50 | NUR ---
Blood transfusion completed. No signs nor symptoms of blood transfusion reaction. Patient tolerated procedure well. Care continued.
[2019-09-03] MEDS: ACETAMINOPHEN 500 MG TAB PO SCH (06:34)
[2019-09-03] MEDS: InsuLIN REG 1unit/0.01ml Soln (100units/ml) SC SCH ×2 (06:35→11:18)
[2019-09-03] MEDS: ACCU-CHEK COMFORT CURVE STRIP VI SCH ×2 (06:35→11:07)
--- NOTE | 2019-09-03 07:30 | NUR ---
Patient has no complains, no signs of distress, comfortably sitting in bed, talking on the phone. Report given to BARI Arias.
--- NOTE | 2019-09-03 07:40 | NUR ---
Opening Shift Note Assumed care of patient, awake and alert. No S/S of distress/SOB or pain. Instructed on POC and to call for assist PRN, will continue to monitor for changes Q1hr and PRN. Bed locked in lowest position with two side rails up and call light in reach.
[2019-09-03 09:14] LABS: Hematocrit 28.4 % (36.0-46.0); Hemoglobin 9.4 g/dL (12.2-16.2)
[2019-09-03] MEDS: ASPirin-EC 81 mg tab PO SCH (10:00)
[2019-09-03] MEDS: CLOPIDOGREL BISULFATE 75 MG TAB PO SCH (10:00)
[2019-09-03] MEDS: PANTOPRAZOLE 40 MG/10 ML VIAL INJ IV SCH (11:05)
[2019-09-03] MEDS: amLODIPine BESYLATE 5 MG TAB PO SCH (11:06)
[2019-09-03] MEDS: LISINOPRIL 20 MG TAB PO SCH (11:07)
--- NOTE | 2019-09-03 13:03 | NUR ---
Discharge instructions given as ordered. Encourage to follow up with PMD as instructed. All questions and concerns addressed. Patient verbalized understanding. Medication reconciliation form completed and copy given to patient. No Home medications held in Pharmacy and none to be returned to patient, and no needed vaccines given. IV removed with catheter intact, pressure dressing applied. Telemetry unit returned to ICU. Patient taken to vehicle via wheelchair with all personal belongings, accompanied by staff and family member. No distress noted at time of departure.
== END 2019-09-03 12:52 | disposition home or self-care (01) | DRG 811 ==
LOC: ER 15:22 → TELE-CENTR 15:23
PROVIDERS: ADMIT Hospitalist; ATTEND Internal Medicine Cardiovascular Disease
PROC: 30230N1 Transfusion of Nonautologous Red Blood Cells into Peripheral Vein, Open Approach (ICD-10-PCS; principal; 2019-09-01)
DX: D50.0 Iron deficiency anemia secondary to blood loss (chronic) (principal); E43 Unspecified severe protein-calorie malnutrition; K29.71 Gastritis, unspecified, with bleeding; N18.4 Chronic kidney disease, stage 4 (severe); N17.9 Acute kidney failure, unspecified; E11.22 Type 2 diabetes mellitus with diabetic chronic kidney disease; E78.5 Hyperlipidemia, unspecified; E11.51 Type 2 diabetes mellitus with diabetic peripheral angiopathy without gangrene; I12.9 Hypertensive chronic kidney disease with stage 1 through stage 4 chronic kidney disease, or unspecified chronic kidney disease; I25.10 Atherosclerotic heart disease of native coronary artery without angina pectoris; F41.9 Anxiety disorder, unspecified; R79.89 Other specified abnormal findings of blood chemistry; J44.9 Chronic obstructive pulmonary disease, unspecified; Z86.73 Personal history of transient ischemic attack (TIA), and cerebral infarction without residual deficits; Z90.710 Acquired absence of both cervix and uterus; Z87.11 Personal history of peptic ulcer disease; Z90.49 Acquired absence of other specified parts of digestive tract; Z68.24 Body mass index [BMI] 24.0-24.9, adult
CPT/HCPCS: 36415; 80053; 80061; 82607; 82728; 82746; 82962; 83010; 83036; 83540; 83550; 83615; 84443; 84484; 85014; 85018; 85025; 85045; 85652; 86038; 86850; 86880; 86900; 86901; 86920; 93005; 96361; 96374; 96375; C9113; G0378; J1756; J1815; J2405; J3490

== ENCOUNTER → 2020-09-26 | Outpatient (CLI) | payer OTHER ==
[~2020-09-26] VITALS: Ht 152.4 cm; Wt 53.1 kg
[~2020-09-26] MED LIST changes: +ADENOSINE 45 MG in GIVE UN-DILUTED 0 ML IV ONE; +ADENOSINE 90 MG/30 ML INJ IV ONE; -ASPI-404 PO; +ASPI-543 PO; -LISI-646 PO; +LISI20TA28 PO
== END | disposition home or self-care (01) ==
LOC: Rad HDHVI 09:11
PROVIDERS: ATTEND Internal Medicine Cardiovascular Disease
DX: I11.0 Hypertensive heart disease with heart failure (principal); I50.43 Acute on chronic combined systolic (congestive) and diastolic (congestive) heart failure; I25.10 Atherosclerotic heart disease of native coronary artery without angina pectoris; E11.9 Type 2 diabetes mellitus without complications; I25.2 Old myocardial infarction; E78.5 Hyperlipidemia, unspecified; R07.9 Chest pain, unspecified
CPT/HCPCS: 78452; 93005; 96374; 96375; A9500; J0153

== ENCOUNTER → 2021-01-22 | Outpatient (CLI) | payer OTHER ==
[~2021-01-22] VITALS: Ht 30.5 cm; Wt 53.1 kg
[~2021-01-22] MED LIST changes: -ADENOSINE 45 MG in GIVE UN-DILUTED 0 ML IV ONE; -ADENOSINE 90 MG/30 ML INJ IV ONE; +IOHEXOL 350 MG/ML 100ML IJ ONE; +SODIUM CHLORIDE 0.9% 1,000 ML IV ONE
[2021-01-22 10:30] VITALS: BP 169/84
[2021-01-22 12:00] VITALS: BP 162/71
[2021-01-22 13:02] VITALS: BP 176/66
[2021-01-22 13:30] VITALS: BP 174/59
== END | disposition home or self-care (01) ==
LOC: Rad HDHVI 10:39
PROVIDERS: ATTEND Internal Medicine Cardiovascular Disease
DX: R42 Dizziness and giddiness (principal); R10.9 Unspecified abdominal pain; R94.4 Abnormal results of kidney function studies; I11.0 Hypertensive heart disease with heart failure; I50.43 Acute on chronic combined systolic (congestive) and diastolic (congestive) heart failure; I25.10 Atherosclerotic heart disease of native coronary artery without angina pectoris; I25.2 Old myocardial infarction; E11.9 Type 2 diabetes mellitus without complications; E78.5 Hyperlipidemia, unspecified
CPT/HCPCS: 96360; 96361; G0463; J7030; Q9967

== ENCOUNTER → 2021-04-24 | Outpatient (CLI) | payer OTHER ==
[~2021-04-24] MED LIST changes: -IOHEXOL 350 MG/ML 100ML IJ ONE; -SODIUM CHLORIDE 0.9% 1,000 ML IV ONE
[2021-04-24 15:34] LABS: BUN/Creatinine Ratio 19.7; Calcium 10.3 mg/dL (8.5-10.1); Potassium 5.1 mmol/L (3.5-5.1)
[2021-04-24 15:35] LABS: Basophils # (auto) 0 10 ^3/uL (0-0.2); Basophils % (auto) 0.6 % (0.0-2.0); Eosinophils # (auto) 0.1 10 ^3/uL (0-0.8); Eosinophils % (auto) 1.2 % (0.0-7.0); Hematocrit 36.3 % (36.0-46.0); Lymphocytes # (auto) 1.4 10 ^3/uL (0.4-5.4); Lymphocytes % (auto) 23.9 % (10.0-50.0); Mean Corpuscular Hemoglobin 29.6 pg (28.0-32.0); Mean Corpuscular Hgb Conc. 33.1 g/dL (32.0-36.0); Mean Corpuscular Volume 89.4 fL (80.0-100.0); Monocytes # (auto) 0.4 10 ^3/uL (0-1.3); Monocytes % (auto) 6.4 % (0.0-12.0); Neutrophils # (auto) 3.9 10 ^3/uL (1.6-8.6); Neutrophils % (auto) 67.9 % (37.0-80.0); Nucleated Red Blood Cells % 0.1 %; Red Blood Cells 4.07 10^6/uL (4.0-5.20); Red Cell Distribution Width 13.9 % (11.8-14.3); White Blood Cell 5.8 10^3/uL (4.4-10.8)
== END | disposition home or self-care (01) ==
LOC: LAB 12:19
PROVIDERS: ATTEND Internal Medicine Cardiovascular Disease
DX: D64.9 Anemia, unspecified (principal)
CPT/HCPCS: 36415; 80048; 85025

== ENCOUNTER 2022-03-26 10:31 | Emergency (ER) | payer OTHER ==
[~2022-03-26] VITALS: Ht 160 cm; Wt 56.5 kg
[2022-03-26 11:01] LABS: Basophils # (auto) 0 10 ^3/uL (0-0.2); Hemoglobin 11.8 g/dL (12.2-16.2)
[2022-03-26 11:04] LABS: Eosinophils # (auto) 0 10 ^3/uL (0-0.8); Hematocrit 37.5 % (36.0-46.0); Lymphocytes # (auto) 0.6 10 ^3/uL (0.4-5.4); Lymphocytes % (auto) 7.5 % (10.0-50.0); Mean Corpuscular Hemoglobin 27.6 pg (28.0-32.0); Mean Corpuscular Hgb Conc. 31.5 g/dL (32.0-36.0); Mean Corpuscular Volume 87.7 fL (80.0-100.0); Monocytes # (auto) 1.1 10 ^3/uL (0-1.3); Monocytes % (auto) 12.9 % (0.0-12.0); Neutrophils # (auto) 6.8 10 ^3/uL (1.6-8.6); Neutrophils % (auto) 79.6 % (37.0-80.0); Red Blood Cells 4.28 10^6/uL (4.0-5.20); Red Cell Distribution Width 15.9 % (11.8-14.3); White Blood Cell 8.6 10^3/uL (4.4-10.8)
[2022-03-26 11:18] LABS: INR 0.97 (0.9-1.15); Partial Thromboplastin Time 29.9 sec (24.6-33.4)
[2022-03-26 11:33] LABS: Albumin 3.6 g/dL (3.4-5.0); BUN/Creatinine Ratio 14.6; Calcium 10.1 mg/dL (8.5-10.1); Potassium 4.7 mmol/L (3.5-5.1)
[2022-03-26 11:35] LABS: Bilirubin, Total 0.6 mg/dL (0.2-1.0); Total Protein 6.4 g/dL (6.4-8.2)
[2022-03-26 12:07] LABS: Magnesium 2.5 mg/dL (1.6-2.6)
[2022-03-26] MEDS: cefTRIAXone 1GM/50ML D5W 50 ML IV ONE (13:39)
[2022-03-26 14:00] VITALS: BP 148/71
[2022-03-26 14:45] LABS: Urine Bacteria FEW /hpf (None Seen); Urine Blood Negative /uL (Negative); Urine Hyaline Cast FEW /lpf (0 - 2); Urine Specific Gravity 1.018 (1.001-1.035); Urine WBC <1 /hpf (0 - 5)
[2022-03-26] MEDS ORDERED: CEFD300C2 PO (16:13)
== END 2022-03-26 16:26 | disposition home or self-care (01) ==
LOC: ER 10:31
DX: J18.9 Pneumonia, unspecified organism (principal); R07.89 Other chest pain; E11.22 Type 2 diabetes mellitus with diabetic chronic kidney disease; I12.9 Hypertensive chronic kidney disease with stage 1 through stage 4 chronic kidney disease, or unspecified chronic kidney disease; N18.9 Chronic kidney disease, unspecified; E11.65 Type 2 diabetes mellitus with hyperglycemia; I70.90 Unspecified atherosclerosis; Z90.49 Acquired absence of other specified parts of digestive tract; Z90.710 Acquired absence of both cervix and uterus
CPT/HCPCS: 36415; 71045; 80053; 81001; 82962; 83735; 84484; 85025; 85610; 85730; 87040; 93005; 96365; 99285; J0696